=== PATIENT | male | born 1975 | race Caucasian/White ===

== ENCOUNTER → 2019-10-26 | Emergency (ER) | payer OTHER ==
--- NOTE | 2019-10-29 08:04 | EKG ---
[facility] [place] [address] ELECTROCARDIOGRAM REPORT Name: JUAN J POOLE Room #: [facility].#: [id number] Admission: Attend Phys: Discharge: Date of : 77 Report #: [id number] THIS REPORT FOR: cc: Casey Matute MD [facility] THIS REPORT FOR: //name// [facility] ED Test Date: 2019-10-26 Test Time: 15:03:06 Pat Name: JUAN J POOLE Department: Room: Gender: [facility] 1975 Requested By: Bernardo Clifford Order Number: [id number] MD: Casey Matute Measurements Intervals [place] Rate: 86 P: 71 CO: 139 QRS: 72 QRSD: 110 T: 37 QT: 375 QTc: 449 Interpretive Statements Sinus rhythm No significant abnormality No previous ECG available for comparison Electronically Signed On 10-29-2019 8:03:55 CDT by Casey Matute [email or web address] <ELECTRONICALLY SIGNED> By: Casey Matute MD, [facility] 10/29/19 [id number] Casey Matute MD, FACC /EPI
== END ==
LOC: ER 15:04
DX: R07.89 Other chest pain (principal); M79.603 Pain in arm, unspecified